=== PATIENT | female | born 1975 | race Caucasian/White ===

== ENCOUNTER 2017-10-26 11:34 | Observation (INO) | payer BC ==
[2017-10-26] VITALS (8 sets, daily range): BP systolic 132–169; BP diastolic 74–112; PULSE 78–94; RESP 16–20; TEMP 98.1–98.3; O2SAT 98–100
[~2017-10-26] VITALS: Ht 157.5 cm; Wt 58.0 kg
[~2017-10-26 11:34] MED LIST: BENA10 PO; HYDR10SO PO; PROT40TA PO; ULTR50TA PO
--- NOTE | 2017-10-26 12:05 | PD ---
HPI Chief Complaint: Chest Pain Time Seen by Provider: 11:44 Travel History International Travel<30 days: No Contact w/Intl Traveler<30days: No Traveled to known affect area: No History of Present Illness HPI Patient is a 42 year old female presents to the ER for evaluation of chest pain , left side of her chest without radiation. She states it has been going on for months. She thought it was more due to stress. She took a valium this morning when it was worse and now it is feeling better. Patient denies SOB, N/V , Dizziness, weakness. States she had a stress test here before and records show that was in feb 2015. Patient is HTN, HLD, and smoker. No strong family history of CAD. PFSH Past Medical History Heart Rhythm Problems: No Cardiac Catheterization: No Cardiovascular Problems: Yes (HTN) Chest Pain: Yes Congestive Heart Failure: No Diabetes: No Hypertension: Yes Neurologic: Yes (BACK PAIN) Tetanus Vaccination: > 5 Years Influenza Vaccination: No ?: Not LMP: 6-7-18 : 0 Para: 0 Miscarriage: 0 : 0 Past Surgical History Coronary Artery Bypass Graft: No Tonsillectomy: Yes (T&A) Family History Family Myocardial Infarction: Yes (uncle) Social History Alcohol Use: Yes (ON WEEKENDS FOR LUNCH) Tobacco Use: Yes (05/11 PPD) Substance Use: No Allergies-Medications (Allergen,Severity, Reaction): Coded Allergies: amoxicillin (Unverified Allergy, Unknown, 10/26/17) Reported Meds & Prescriptions Reported Meds & Active Scripts Active Reported Lexapro (Escitalopram Oxalate) 20 Mg Tab 20 Mg PO DAILY Wellbutrin SR 12 HR (Bupropion HCl) 150 Mg Tab 150 Mg PO Q12HR [place] (Hydrocodone-Acetaminophen) 10-325 Mg Tab 1 Tab PO Q4H PRN Tramadol (Tramadol HCl) 50 Mg Tab 50 Mg PO BID PRN Review of Systems Except as stated in HPI: all other systems reviewed are Neg Physical Exam Narrative GENERAL: WD/WN in nad. SKIN: Warm and dry. HEAD: Atraumatic. Normocephalic. EYES: Pupils equal and round. No scleral icterus. No injection or drainage. ENT: No nasal bleeding or discharge. Mucous membranes pink and moist. NECK: Trachea midline. No JVD. CARDIOVASCULAR: Regular rate and rhythm. 2+ bilaterally equal pulses in all four extremities. No MGR. RESPIRATORY: No accessory muscle use. Clear to auscultation. Breath sounds equal bilaterally. GASTROINTESTINAL: Abdomen soft, non-tender, nondistended. Hepatic and splenic margins not palpable. MUSCULOSKELETAL: Extremities without clubbing, cyanosis, or edema. No obvious deformities. NEUROLOGICAL: Awake and alert. No obvious cranial nerve deficits. Motor grossly within normal limits. Five out of 5 muscle strength in the arms and legs. Normal speech. PSYCHIATRIC: Appropriate mood and affect; insight and judgment normal. Data Data Last Documented VS Vital Signs Date Time Temp Pulse Resp B/P (MAP) Pulse Ox O2 Delivery O2 Flow Rate FiO2 10/26/17 12:20 86 20 150/99 (116) 100 Room Air 10/26/17 11:48 98.3 Orders Orders Electrocardiogram (10/26/17 ) Basic Metabolic Panel (Bmp) (10/26/17 12:01) Ckmb (Isoenzyme) Profile (10/26/17 12:01) Complete Blood Count With Diff (10/26/17 12:01) Magnesium (Mg) (10/26/17 12:01) Prothrombin Time / Inr (Pt) (10/26/17 12:01) Act Partial Throm Time (Ptt) (10/26/17 12:01) Troponin I (10/26/17 12:01) Ecg Monitoring (10/26/17 12:01) Iv Access Insert/Monitor (10/26/17 12:01) Oximetry (10/26/17 12:01) Oxygen Administration (10/26/17 12:01) Aspirin Chew (Aspirin Chew) (10/26/17 12:15) Sodium Chloride 0.9% Flush (Ns Flush) (10/26/17 12:15) Chest, Single Ap (10/26/17 ) Admit Order (Ed Use Only) (10/26/17 ) Labs Laboratory Tests Test 10/26/17 12:20 White Blood Count 6.3 TH/MM3 Red Blood Count 4.02 MIL/MM3 Hemoglobin 12.6 GM/DL Hematocrit 38.7 % Mean Corpuscular Volume 96.2 FL Mean Corpuscular Hemoglobin 31.4 PG Mean Corpuscular Hemoglobin Concent 32.6 % Red Cell Distribution Width 14.9 % Platelet Count 365 TH/MM3 Mean Platelet Volume 6.8 FL Neutrophils (%) (Auto) 60.5 % Lymphocytes (%) (Auto) 30.1 % Monocytes (%) (Auto) 7.8 % Eosinophils (%) (Auto) 1.0 % Basophils (%) (Auto) 0.6 % Neutrophils # (Auto) 3.8 TH/MM3 Lymphocytes # (Auto) 1.9 TH/MM3 Monocytes # (Auto) 0.5 TH/MM3 Eosinophils # (Auto) 0.1 TH/MM3 Basophils # (Auto) 0.0 TH/MM3 CBC Comment DIFF FINAL Differential Comment Prothrombin Time 10.2 SEC Prothromb Time International Ratio 1.0 RATIO Activated Partial Thromboplast Time 24.7 SEC Blood Urea Nitrogen 10 MG/DL Creatinine 0.76 MG/DL Random Glucose 84 MG/DL Calcium Level 9.2 MG/DL Magnesium Level 2.3 MG/DL Sodium Level 138 MEQ/L Potassium Level 4.3 MEQ/L Chloride Level 105 MEQ/L Carbon Dioxide Level 24.3 MEQ/L Anion Gap 9 MEQ/L Estimat Glomerular Filtration Rate 83 ML/MIN Total Creatine Kinase 43 U/L Troponin I LESS THAN 0.02 NG/ML MDM Medical Decision Making Medical Screen Exam Complete: Yes Emergency Medical Condition: Yes Differential Diagnosis ACS, AMI, CAD, PNA, PE unlikely (excluded by wells and PERC criteria). Narrative Course Patient roomed in the ER, EKG and troponin reassuring. Last 24 hours Impressions Chest X-Ray 10/26/17 0000 Signed Impressions: CONCLUSION: No acute cardiopulmonary process. Patient does have risk factors (family has CO albeit at an older age, HTN, Smoking). She has no regular PCP. Discussed at length observation status and she is agreeable. Diagnosis Primary Impression: Chest pain Admitting Information Admitting Physician Requests: Observation Condition: Stable Kenny Whiteside MD Oct 26, 2017 12:05
[2017-10-26] MEDS ORDERED: SODIUM CHLORIDE 0.9% FLUSH 10 ML FLUSH IVF PRN (12:15)
[2017-10-26] MEDS ORDERED: ASPIRIN 81 MG CHEW TAB PO ONE (12:15)
[2017-10-26 12:34] LABS: AUTOMATED NEUTROPHIL # 3.8 TH/MM3 (1.8-7.7); BASOPHIL % 0.6 % (0.0-2.0); EOSINOPHIL # 0.1 TH/MM3 (0-0.4); HEMATOCRIT 38.7 % (35.0-46.0); HEMOGLOBIN 12.6 GM/DL (11.6-15.3); LYMPH % 30.1 % (9.0-44.0); LYMPHOCYTE # 1.9 TH/MM3 (1.0-4.8); MEAN CELL VOLUME 96.2 FL (80.0-100.0); MEAN CORPUSCULAR HEMOGLOBIN 31.4 PG (27.0-34.0); MEAN CORPUSCULAR HGB CONC 32.6 % (32.0-36.0); MEAN PLATELET VOLUME 6.8 FL (7.0-11.0); MONO % 7.8 % (0.0-8.0); MONOCYTE # 0.5 TH/MM3 (0-0.9); NEUT % 60.5 % (16.0-70.0); PLATELET COUNT 365 TH/MM3 (150-450); RED BLOOD COUNT 4.02 MIL/MM3 (4.00-5.30); RED CELL DISTRIBUTION WIDTH 14.9 % (11.6-17.2); WHITE BLOOD COUNT 6.3 TH/MM3 (4.0-11.0)
[2017-10-26] MEDS ORDERED: TRAM50TA PO (12:41)
[2017-10-26] MEDS ORDERED: LEXA20TA PO (12:41)
[2017-10-26] MEDS ORDERED: HYDR-3366 PO (12:41)
[2017-10-26] MEDS ORDERED: BUPR150CR PO (12:41)
[2017-10-26 12:46] LABS: PROTHROMBIN TIME - PATIENT 10.2 SEC (9.8-11.6)
[2017-10-26 12:52] LABS: BICARBONATE 24.3 MEQ/L (21.0-32.0); BLOOD UREA NITROGEN 10 MG/DL (7-18); CALCIUM 9.2 MG/DL (8.5-10.1); CHLORIDE 105 MEQ/L (98-107); CREATININE 0.76 MG/DL (0.50-1.00); GLOMERULAR FILTRATION RATE 83 ML/MIN (>89); GLUCOSE,RANDOM 84 MG/DL (74-106); MAGNESIUM 2.3 MG/DL (1.5-2.5); SODIUM (NA) 138 MEQ/L (136-145)
[2017-10-26 12:56] LABS: TROPONIN I LESS THAN 0.02 NG/ML (0.02-0.05)
--- NOTE | 2017-10-26 13:20 | RADRPT ---
EXAM DATE: 10/26/2017 1:15 PM EDT AGE/SEX: 42 years / Female INDICATIONS: Chest pain CLINICAL DATA: This is the patient's initial encounter. Patient reports that signs and symptoms have been present for 1 month and indicates a pain score of 2/10. MEDICAL/SURGICAL HISTORY: Hypertension. None. COMPARISON: [facility] [place], [place]/11[place]. . FINDINGS: A single AP view of the chest demonstrates the lungs to be symmetrically aerated without evidence of mass, infiltrate or effusion. The cardiomediastinal contours are unremarkable. Osseous structures a re intact. CONCLUSION: No acute cardiopulmonary process. Electronically signed by: Nam Sutton MD 10/26/2017 1:19 PM EDT
[2017-10-26] MEDS ORDERED: ONDANSETRON ODT 4 MG TAB PO PRN (14:45)
[2017-10-26] MEDS ORDERED: SODIUM CHLORIDE 0.9% FLUSH 10 ML FLUSH IV FLUSH PRN (14:45)
[2017-10-26] MEDS ORDERED: ACETAMINOPHEN 500 MG CPLT PO PRN (14:45)
[2017-10-26] MEDS ORDERED: NITROGLYCERIN 0.4 MG SL 25 TABS/BTL SL PRN (14:45)
[2017-10-26 15:55] LABS: TROPONIN I LESS THAN 0.02 NG/ML (0.02-0.05)
--- NOTE | 2017-10-26 17:43 | HHI.HP ---
HPI Primary Care Physician Unknown Chief Complaint Chest pain History of Present Illness 42 year old female with history of anxiety and depression presents emergency room for further evaluation of nonexertional chest pain. Intermittent chest pain since May, initially thought discomfort related to anxiety and depression. Started on Lexapro in May, Wellbutrin in July. After starting Wellbutrin chest pain resolved, returning last couple of weeks. Location substernal. Characterized as dull pain. Severity moderate. No radiation. No associated symptoms of nausea, vomiting, dyspnea, or diaphoresis. Noticed during evening hours, lasting 2-3 hours. No precipitating or relieving factors. Reports rare left anterior chest pain characterized as a sharp, quick pain lasting seconds. Increased fatigue since Monday. Nauseous most of day Monday, not accompanied with chest pain. No current chest pain. No recent illness, fever, or chills. Her family encouraged her to come the ER for further evaluation. She is in between primary care providers, follows with pain management for chronic back and hip pain. Review of Systems General: No fatigue, weakness, fever, chills, or recent illness. Has been in her general state of health. HEENT: No TOMAS, no vision changes, no nasal congestion or drainage, no dysphasia CV: As stated above. No current chest pain or pressure. RESP: No SOB, cough, wheeze, recent URI, or history of asthma GI: Nausea resolved. No vomiting, bowel changes, diarrhea, constipation, pain, distention, melena, or blood in the stool. No change in appetite, no unintentional weight gain or weight loss. : No dysuria, urgency, frequency, hematuria, or history of kidney stones. Reports recent UA completed pain management for microscopic blood. Denies frequent urinary tract infections. Last menses 10/12/17 and UA sample not taken while on menses. EXT: No lower leg edema, no paraesthesias MS: Chronic back and hip pain, follows with pain management. No change in ROM NEURO: No dizziness, difficulty with balance, LOC, motor/sensory deficits PSYCH: History of anxiety and depression and feels current medication regimen are helping her symptoms. SKIN: No rashes, no concerning lesions Past Family Social History Allergies: Coded Allergies: amoxicillin (Unverified Allergy, Unknown, 10/26/17) Past Medical History Chronic back and hip pain, anxiety, depression Past Surgical History Tonsillectomy Reported Medications Reported Meds & Active Scripts Active Reported Lexapro (Escitalopram Oxalate) 20 Mg Tab 20 Mg PO DAILY Wellbutrin SR 12 HR (Bupropion HCl) 150 Mg Tab 150 Mg PO Q12HR [place] (Hydrocodone-Acetaminophen) 10-325 Mg Tab 1 Tab PO Q4H PRN Tramadol (Tramadol HCl) 50 Mg Tab 50 Mg PO BID PRN Active Ordered Medications Current Medications Medications (Trade) Dose Ordered Sig/Elieser Route Start Time Stop Time Status Last Admin (NS Flush) 2 ml UNSCH PRN IV FLUSH 10/26/17 14:45 (NS Flush) 2 ml BID IV FLUSH 10/26/17 21:00 (Tylenol) 500 mg Q4H PRN PO 10/26/17 14:45 (Nitrostat Sl) 0.4 mg Q5M PRN SL 10/26/17 14:45 (Aspirin) 325 mg DAILY PO 10/27/17 09:00 (Zofran Odt) 4 mg Q6H PRN PO 10/26/17 14:45 Family History Noncontributory for early onset cardiovascular disease Social History No known diabetes, hypertension, or hyperlipidemia. Remote hypertension history in early 20s, taken off medications many years ago. Current smoker 1/2pack week. Social alcohol on weekends. Past cardiac testing 02/11/15 Lexiscan-minimal redistribution in the mid septum wall. Normal wall function. Physical Exam Vital Signs Vital Signs Date Time Temp Pulse Resp B/P (MAP) Pulse Ox O2 Delivery O2 Flow Rate FiO2 10/26/17 17:27 90 10/26/17 17:01 88 19 132/74 (93) 98 10/26/17 15:41 94 20 144/96 (112) 100 Room Air 10/26/17 12:20 86 20 150/99 (116) 100 Room Air 10/26/17 11:48 98.3 93 18 169/112 (131) 100 Physical Exam GENERAL: Alert WN, WD, NAD, pleasant, female HEAD: NC, AT EYES: Sclera clear, conjunctiva without injection, pupils equal and round ENT: Mucous membranes pink and moist, no nasal discharge or bleeding NECK: Supple, no masses, trachea midline CV: RRR, without murmur, rub, or gallop, no S3-S4. Chest wall nontender with palpation RESP: Clear lungs throughout bilateral, no crackles, wheeze, rhonchi, symmetrical chest rise, nonlabored, able to speak in full sentences ABD: Soft, NT, ND, no masses, positive bowel tones EXT: Pulses +2x4, no dependent edema MS: Normal tone x4 extremities, nontender, no obvious deformities, full range of motion NEURO: CN II through CN XII grossly intact, motor strength 5/5 PSYCH: A+O x3, pleasant affect, appropriate speech, mood, insight and judgment SKIN: Normal turgor, normal texture, no lesions, no rashes, tattoos Laboratory Laboratory Tests Test 10/26/17 12:20 10/26/17 15:00 White Blood Count 6.3 Red Blood Count 4.02 Hemoglobin 12.6 Hematocrit 38.7 Mean Corpuscular Volume 96.2 Mean Corpuscular Hemoglobin 31.4 Mean Corpuscular Hemoglobin Concent 32.6 Red Cell Distribution Width 14.9 Platelet Count 365 Mean Platelet Volume 6.8 Neutrophils (%) (Auto) 60.5 Lymphocytes (%) (Auto) 30.1 Monocytes (%) (Auto) 7.8 Eosinophils (%) (Auto) 1.0 Basophils (%) (Auto) 0.6 Neutrophils # (Auto) 3.8 Lymphocytes # (Auto) 1.9 Monocytes # (Auto) 0.5 Eosinophils # (Auto) 0.1 Basophils # (Auto) 0.0 CBC Comment DIFF FINAL Differential Comment Prothrombin Time 10.2 Prothromb Time International Ratio 1.0 Activated Partial Thromboplast Time 24.7 Blood Urea Nitrogen 10 Creatinine 0.76 Random Glucose 84 Calcium Level 9.2 Magnesium Level 2.3 Sodium Level 138 Potassium Level 4.3 Chloride Level 105 Carbon Dioxide Level 24.3 Anion Gap 9 Estimat Glomerular Filtration Rate 83 Total Creatine Kinase 43 36 Troponin I LESS THAN 0.02 LESS THAN 0.02 Result Diagram: 10/26/17 1220 10/26/17 1220 Imaging Last 48 hours Impressions Chest X-Ray 10/26/17 0000 Signed Impressions: CONCLUSION: No acute cardiopulmonary process. Course EKG NSR, nonspecific st t changes Caprini VTE Risk Assessment Caprini VTE Risk Assessment: No/Low Risk (score <= 1) Caprini Risk Assessment Model Point Value = 1 Point Value = 2 Point Value = 3 Point Value = 5 Age 41-60 Minor surgery BMI > 25 kg/m2 Swollen legs Varicose veins or History of unexplained or recurrent spontaneous Oral contraceptives or hormone replacement Sepsis (< 1 month) Serious lung disease, including pneumonia (< 1 month) Abnormal pulmonary function Acute myocardial infarction Congestive heart failure (< 1 month) History of inflammatory bowel disease Medical patient at bed rest Age 61-74 Arthroscopic surgery Major open surgery (> 45 min) Laparoscopic surgery (> 45 min) Malignancy Confined to bed (> 72 hours) Immobilizing plaster cast Central venous access Age >= 75 History of VTE Family history of VTE Factor V Leiden Prothrombin [id number] Lupus anticoagulant Anticardiolipin antibodies Elevated serum homocysteine Heparin-induced thrombocytopenia Other congenital or acquired thrombophilia Stroke (< 1 month) Elective arthroplasty Hip, pelvis, or leg fracture Acute spinal cord injury (< 1 month) Prophylaxis Regimen Total Risk Factor Score Risk Level Prophylaxis Regimen 0-1 Low Early ambulation 2 Moderate Order ONE of the following: *Sequential Compression Device (SCD) *Heparin 5000 units SQ BID 3-4 Higher Order ONE of the following medications: *Heparin 5000 units SQ TID *Enoxaparin/Lovenox 40 mg SQ daily (WT < 150 kg, CrCl > 30 mL/min) *Enoxaparin/Lovenox 30 mg SQ daily (WT < 150 kg, CrCl > 10-29 mL/min) *Enoxaparin/Lovenox 30 mg SQ BID (WT < 150 kg, CrCl > 30 mL/min) AND/OR *Sequential Compression Device (SCD) 5 or more Highest Order ONE of the following medications: *Heparin 5000 units SQ TID (Preferred with Epidurals) *Enoxaparin/Lovenox 40 mg SQ daily (WT < 150 kg, CrCl > 30 mL/min) *Enoxaparin/Lovenox 30 mg SQ daily (WT < 150 kg, CrCl > 10-29 mL/min) *Enoxaparin/Lovenox 30 mg SQ BID (WT < 150 kg, CrCl > 30 mL/min) AND *Sequential Compression Device (SCD) Assessment and Plan Assessment and Plan #1 Atypical chest pain-admitted chest pain center. Rule out ACS with 3 sets of EKGs and cardiac enzymes. Monitor on telemetry overnight. Will be seen and evaluated by Dr. Floyd Kay in a.m. Discussed likely repeating iliac testing in a.m. Testing with most likely be Lexiscan due to chronic pain and nonspecific EKG changes. Patient agreeable to plan of care. Obtain TSH. Repeat UA due to recent diagnosis of microhematuria. #2 History of anxiety/depression-continue Lexapro and Wellbutrin #3 Tobacco use-instructed to quit smoking Charley Almanzar Oct 26, 2017 17:43
[2017-10-26 18:40] LABS: BACTERIA, URINE OCC /hpf; BILIRUBIN, URINE NEG (NEG); BLOOD, URINE NEG (NEG); GLUCOSE,URINE NEG (NEG); HYALINE CAST, URINE 1 /lpf (RARE); KETONE, URINE TRACE mg/dL (NEG); MUCUS URINE MANY /lpf (OCC); NITRITE,URINE NEG (NEG); SQUAMOUS EPITHELIAL CELL URINE 12 /hpf (0-5); URINE COLOR YELLOW (YELLW/STRAW); URINE LEUKOCYTE ESTERASE NEG (NEG)
[2017-10-26 18:43] LABS: TROPONIN I LESS THAN 0.02 NG/ML (0.02-0.05)
[2017-10-26] MEDS: buPROPion HCL 150 MG SUSTAINED RELEASE TAB PO SCH (20:08)
[2017-10-26] MEDS: ESCITALOPRAM OXALATE 20 MG TAB PO SCH (20:08)
[2017-10-26] MEDS ORDERED: SODIUM CHLORIDE 0.9% FLUSH 10 ML FLUSH IV FLUSH SCH (21:00)
[2017-10-27 00:30] VITALS: PULSE 76
[2017-10-27 03:12] VITALS: BP 135/85; PULSE 71; RESP 16; TEMP 98.1; O2SAT 98
[2017-10-27 04:30] VITALS: PULSE 64
[2017-10-27 07:00] VITALS: PULSE 72
[2017-10-27 07:43] VITALS: BP 133/77; PULSE 82; RESP 18; TEMP 98.6; O2SAT 99
--- NOTE | 2017-10-27 08:07 | EKG ---
Date Performed: 10/26/2017 Time Performed: 18:53:30 PTAGE: 42 years EKG: Sinus rhythm NORMAL ECG PREVIOUS TRACING : 10/26/2017 14.55 Since previous tracing, no significant change noted DOCTOR: Rickey Schuster Interpretating Date/Time 10/27/2017 08:06:44
--- NOTE | 2017-10-27 08:09 | EKG ---
Date Performed: 10/26/2017 Time Performed: 14:55:39 PTAGE: 42 years EKG: SINUS TACHYCARDIA ST DEVIATION AND MODERATE T-WAVE ABNORMALITY, CONSIDER LATERAL ISCHEMIA S T DEVIATION AND MODERATE T-WAVE ABNORMALITY, CONSIDER INFERIOR ISCHEMIA ABNORMAL ECG PREVIOUS TRACING : 10/26/2017 11.53 Since previous tracing, ST changes are more prominent DOCTOR: Rickey Schuster Interpretating Date/Time 10/27/2017 08:07:44
--- NOTE | 2017-10-27 08:10 | EKG ---
Date Performed: 10/26/2017 Time Performed: 11:53:03 PTAGE: 42 years EKG: Sinus rhythm NORMAL ECG INTERPRETATION BASED ON A DEFAULT AGE OF 39 YEARS PREVIOUS TRACING : 02/11/2015 12.29 Since previous tracing, no significant change noted DOCTOR: Rickey Schuster Interpretating Date/Time 10/27/2017 08:08:34
[2017-10-27] MEDS: ESCITALOPRAM OXALATE 20 MG TAB PO SCH (09:00)
[2017-10-27] MEDS: buPROPion HCL 150 MG SUSTAINED RELEASE TAB PO SCH (09:00)
[2017-10-27] MEDS ORDERED: ASPIRIN 325 MG TAB PO SCH (09:00)
--- NOTE | 2017-10-27 10:09 | PD.CARD.PN ---
Subjective Subjective Remarks Very pleasant 42-year-old lady presents with intermittent chest pressure which has been going on since May. This discomfort is described as a dull achy feeling in the substernal region typically occurring during the evening hours after she is recumbent. This will last for 2-3 hours and does not seem to have any associated precipitating or relieving factors. There is also no shortness of breath nausea or diaphoresis. She does admit to problems with anxiety depression and is currently seeing a therapist to help manage this problem. Additionally she is seen for pain management by a physician who is with [facility]. The patient also has a history of some hypertension in part of her presentation at this time arises from her concerned that her diastolic blood pressure has also been going up. The patient was discussed with the nurse practitioner and she was personally seen and examined by this physician. Plan was to move around and evaluate her using standard chest pain center protocol. She had a negative Rosa scan in 2014 and is amenable to repeating this procedure on this admission. Objective Medications Current Medications Medications (Trade) Dose Ordered Sig/Elieser Route Start Time Stop Time Status Last Admin (NS Flush) 2 ml UNSCH PRN IV FLUSH 10/26/17 14:45 (NS Flush) 2 ml BID IV FLUSH 10/26/17 21:00 10/26/17 20:08 (Tylenol) 500 mg Q4H PRN PO 10/26/17 14:45 (Nitrostat Sl) 0.4 mg Q5M PRN SL 10/26/17 14:45 10/26/17 22:32 (Aspirin) 325 mg DAILY PO 10/27/17 09:00 (Zofran Odt) 4 mg Q6H PRN PO 10/26/17 14:45 (Wellbutrin Sr) 150 mg Q12HR PO 10/26/17 21:00 (Lexapro) 20 mg DAILY PO 10/26/17 21:00 Vital Signs / I&O Vital Signs Date Time Temp Pulse Resp B/P (MAP) Pulse Ox O2 Delivery O2 Flow Rate FiO2 10/27/17 07:43 98.6 82 18 133/77 (95) 99 10/27/17 05:59 21 10/27/17 04:30 64 10/27/17 03:12 98.1 71 16 135/85 (102) 98 10/27/17 00:30 76 10/26/17 23:14 98.1 78 16 134/94 (107) 98 10/26/17 22:37 15 10/26/17 20:29 87 10/26/17 20:04 98.2 88 16 151/98 (115) 98 10/26/17 17:27 90 10/26/17 17:01 88 19 132/74 (93) 98 10/26/17 15:41 94 20 144/96 (112) 100 Room Air 10/26/17 12:20 86 20 150/99 (116) 100 Room Air 10/26/17 11:48 98.3 93 18 169/112 (131) 100 Physical Exam Well-nourished well-developed woman resting comfortably at the time I examined her Eyes PERRLA EOMI Neck supple no JVD masses nodes or bruits Chest clear to auscultation with no rales wheezes or rhonchi Cardiovascular regular sinus rhythm with no gallops rubs or murmurs Abdomen soft nontender no guarding or rebound no masses Extremities no clubbing cyanosis edema and pulses good and equal Laboratory Laboratory Tests Test 10/26/17 12:20 10/26/17 15:00 10/26/17 18:10 White Blood Count 6.3 TH/MM3 Red Blood Count 4.02 MIL/MM3 Hemoglobin 12.6 GM/DL Hematocrit 38.7 % Mean Corpuscular Volume 96.2 FL Mean Corpuscular Hemoglobin 31.4 PG Mean Corpuscular Hemoglobin Concent 32.6 % Red Cell Distribution Width 14.9 % Platelet Count 365 TH/MM3 Mean Platelet Volume 6.8 FL Neutrophils (%) (Auto) 60.5 % Lymphocytes (%) (Auto) 30.1 % Monocytes (%) (Auto) 7.8 % Eosinophils (%) (Auto) 1.0 % Basophils (%) (Auto) 0.6 % Neutrophils # (Auto) 3.8 TH/MM3 Lymphocytes # (Auto) 1.9 TH/MM3 Monocytes # (Auto) 0.5 TH/MM3 Eosinophils # (Auto) 0.1 TH/MM3 Basophils # (Auto) 0.0 TH/MM3 CBC Comment DIFF FINAL Differential Comment Prothrombin Time 10.2 SEC Prothromb Time International Ratio 1.0 RATIO Activated Partial Thromboplast Time 24.7 SEC Blood Urea Nitrogen 10 MG/DL Creatinine 0.76 MG/DL Random Glucose 84 MG/DL Calcium Level 9.2 MG/DL Magnesium Level 2.3 MG/DL Sodium Level 138 MEQ/L Potassium Level 4.3 MEQ/L Chloride Level 105 MEQ/L Carbon Dioxide Level 24.3 MEQ/L Anion Gap 9 MEQ/L Estimat Glomerular Filtration Rate 83 ML/MIN Total Creatine Kinase 43 U/L 36 U/L 35 U/L Troponin I LESS THAN 0.02 NG/ML LESS THAN 0.02 NG/ML LESS THAN 0.02 NG/ML Urine Color YELLOW Urine Turbidity HAZY Urine pH 5.0 Urine Specific [place] 1.026 Urine Protein NEG mg/dL Urine Glucose (UA) NEG mg/dL Urine Ketones TRACE mg/dL Urine Occult Blood NEG Urine Nitrite NEG Urine Bilirubin NEG Urine Urobilinogen LESS THAN 2 mg/dL Urine Leukocyte Esterase NEG Urine RBC LESS THAN 1 /hpf Urine WBC 1 /hpf Urine Squamous Epithelial Cells 12 /hpf Urine Bacteria OCC /hpf Urine Hyaline Casts 1 /lpf Urine Mucus MANY /lpf Thyroid Stimulating Hormone 3rd Gen 2.870 uIU/ML Imaging Negative chest x-ray Assessment and Plan Assessment and Plan Patient will be evaluated using standard chest pain center protocol including nuclear scan prior to discharge. She will be discharged back to the care of her primary care physician and her therapist Code Status Full code Discussed Condition With Situation was discussed with the nurse practitioner and with the patient. Floyd Kay MD Oct 27, 2017 10:09
[2017-10-27] MEDS ORDERED: REGADENOSON INJ 0.4 MG/5 ML SYR ONE (10:39)
[2017-10-27 12:01] VITALS: BP 156/97; PULSE 85; RESP 18; TEMP 98.3; O2SAT 99
--- NOTE | 2017-10-27 12:28 | RADRPT ---
EXAM DATE: 10/27/2017 12:19 PM EDT AGE/SEX: 42 years / Female INDICATIONS:Angina. . Substernal chest pain. CLINICAL DATA: This is the patient's initial encounter. Patient reports that signs and symptoms have been present for 1 week and indicates a pain score of 5/10. MEDICAL/SURGICAL HISTORY: . Tonsillectomy. COMPARISON: [facility], MYOCARDIAL PERF TREADMILL SPECT, 02/11/2015. . DOSE: 8.5 mCi Tc 99m Myoview at rest 25.4 mCi [id number] at stress 0.4 mg Lexiscan STRESS SYMPTOMS: Dyspnea. EJECTION FRACTION: 65 % TECHNIQUE: The patient underwent pharmacologic stress with infusion of prescribed dose. Continuous ECG tracing was monitored during stress. Gated SPECT imaging was performed after stress and conventi onal SPECT imaging was performed at rest. The examination was performed on a SPECT/CT scanner, both attenuation and non-corrected datasets were reviewed. FINDINGS: Distribution: The maximum perfused segment at stress is in the anterior wall. Perfusion Study: The pattern of perfusion at stress is within normal limits with regional variation s perfusion within 25%. No evidence of redistribution on the resting injections scan. The sum stress score is 1. Gated Study: There are intact wall motion and wall thickening without hypokinetic or dyskinetic segm ents. The ejection fraction is calculated at 65%. RISK CATEGORY: Low (<1% Annual Motality Rate) CONCLUSION: 1. No evidence of stress-induced ischemia. 2. Intact wall motion with 65% ejection fraction. Electronically signed by: Delta Moctezuma MD 10/27/2017 12:27 PM EDT
--- NOTE | 2017-10-27 12:41 | HHI.DCPOC ---
Discharge Care Plan Diagnosis: (1) Atypical chest pain (2) Anxiety (3) Tobacco abuse Goals to Promote Your Health * To prevent worsening of your condition and complications * To maintain your health at the optimal level Directions to Meet Your Goals Take your medications as prescribed Follow your dietary instruction Follow activity as directed Keep your appointments as scheduled Take your immunizations and boosters as scheduled If your symptoms worsen call your PCP, if no PCP go to Urgent Care Center or Emergency Room Smoking is Dangerous to Your Health. Avoid second hand smoke Call the 24-hour hour crisis hotline for domestic abuse at Charley Almanzar Oct 27, 2017 12:41
--- NOTE | 2017-10-27 15:34 | TR ---
Date Performed: 10/27/2017 Time Performed: 10:39:48 DOCTOR: Floyd Kay DRUG LIST: CLINICAL HISTORY: REASON FOR TEST: REASON FOR ENDING: OBSERVATION: CONCLUSION: Lexiscan stress test was performed under standard four minute protocol. Radionuclide was injected one minute prior to ending the test. Non specific ST T changes were noted but No diagno stic electrocardiographic abormalities were present to suggest ischemia. Nuclear imaging and interpre tation are pending. COMMENTS:
== END 2017-10-27 15:25 | disposition home or self-care (01) ==
LOC: NEPD 11:34 → NEDA 13:47 → NEPHCDU 14:18 → NEPGCP 17:01
PROVIDERS: ADMIT Internal Medicine Cardiovascular Disease; ATTEND Internal Medicine Cardiovascular Disease
DX: R07.89 Other chest pain (principal); F41.8 Other specified anxiety disorders; R53.83 Other fatigue; I10 Essential (primary) hypertension; E78.5 Hyperlipidemia, unspecified; R11.0 Nausea; R00.0 Tachycardia, unspecified; M54.9 Dorsalgia, unspecified; M25.559 Pain in unspecified hip; G89.29 Other chronic pain; F17.200 Nicotine dependence, unspecified, uncomplicated; Z79.899 Other long term (current) drug therapy
CPT/HCPCS: 71045; 78452; 80048; 81001; 82550; 83735; 84443; 84484; 85025; 85610; 85730; 93005; 93017; A9502; J2785; G0378